=== PATIENT | female | born 1970 | race Caucasian/White ===

== ENCOUNTER 2023-11-23 18:34 | Emergency (ER) | payer OTHER, BC, SELFPAY ==
[2023-11-23 18:38] VITALS: BP 117/81; PULSE 73; RESP 16; TEMP 36.3; O2SAT 98; BMI 25.7
--- NOTE | 2023-11-23 18:58 | CRLHL7_ITS ---
For Patients: As a result of the Century Cures Act, medical imaging exams and procedure reports are released immediately into your electronic medical record. You may view this report before your referring provider. If you have questions, please contact your health care provider. INDICATION: Flank pain. Evaluate for kidney stone. TECHNIQUE: Multiplanar CT examination of the abdomen and pelvis was performed without the use of intravenous contrast, renal stone protocol. COMPARISON: None. FINDINGS: Limited evaluation of the soft tissue organs without the use of intravenous contrast. Lower chest: No focal consolidation. Normal heart size. No pleural effusions or pneumothorax. Liver: Unremarkable. Gallbladder: Cholecystectomy. Biliary: Unremarkable. Pancreas: Within normal limits. Spleen: Unremarkable. Adrenal glands: Unremarkable. Renal/ureters/bladder: Normal in size. No obstructive uropathy. No hydronephrosis or obstructive urinary calculi. Tiny nonobstructive calculi measuring 3.4 within the collecting system of the left kidney. No suspicious renal masses. The ureters appear unremarkable. The bladder is within normal limits. Pelvis: Retroverted uterus with intrauterine device in place. No adnexal masses. Gastrointestinal: No bowel wall thickening or bowel obstruction. Normal appendix. No significant colonic diverticulosis. Mild colonic stool burden. Vasculature: No aortic aneurysm. Mild atherosclerotic calcifications. Lymph nodes: No pathologic lymphadenopathy by size criteria. Peritoneum: No free fluid or pneumoperitoneum. No drainable fluid collections. Abdominal wall/soft tissues: Unremarkable. Bones: No acute osseous abnormalities. Mild degenerative changes of the thoracolumbar spine. IMPRESSION: 1. No hydronephrosis or obstructive urolithiasis. Nonobstructive tiny urinary calculus within the inferior pole of the left kidney. 2. Otherwise, no acute abdominopelvic pathology. The etiology of patient`s flank pain is not elucidated on this examination. Please note that all CT scans at this facility use dose modulation, iterative reconstruction, and/or weight-based dosing when appropriate to reduce radiation dose to as low as reasonably achievable. Dictated by Marquise Muñoz MD @ 11/23/2023 7:46:18 PM (Electronically Signed)
--- NOTE | 2023-11-23 18:59 | ED.ABDPAIN ---
HPI - Abdominal Pain General Chief Complaint: Abdominal Pain Stated Complaint: stomach pain Time Seen by Provider: 11/23/23 18:44 History of Present Illness HPI narrative: This 53-year-old female comes in reporting abdominal pain in the mid to lower abdomen that began about 3 days ago. She states that the pain comes and goes but sometimes it is very intense when it is present and other times it is completely gone. She has had some diarrhea on occasion through this time. She does not report any fevers. She does have a history of kidney stone and wonders if this may explain her symptoms. She does not report any dysuria symptoms. Related Data Home Medications ?Medication ?Instructions ?Recorded ?Confirmed atorvastatin 20 mg tablet 20 mg PO DAILY 11/23/23 11/23/23 chlorthalidone 50 mg tablet 50 mg PO DAILY 11/23/23 11/23/23 citalopram 20 mg tablet 20 mg PO DAILY 11/23/23 11/23/23 metformin 500 mg tablet,extended 1,000 mg PO BID 11/23/23 11/23/23 release 24 hr potassium chloride 20 mEq 20 meq PO BID 11/23/23 11/23/23 tablet,extended release potassium citrate 10 mEq (1,080 20 meq PO BID 11/23/23 11/23/23 mg) tablet,extended release semaglutide 14 mg tablet (Rybelsus) 14 mg PO QAM 11/23/23 11/23/23 Allergies Allergy/AdvReac Type Severity Reaction Status Date / Time erythromycin base Allergy Intermediate Abdominal Verified 11/23/23 18:37 Pain Review of Systems Status of ROS Reports: 10 or more systems reviewed and unremarkable except as noted in History and below Narrative Constitutional: No fevers, no weight gain or loss. Eyes: No discharge. No vision changes. HENT: No congestion, no sore throat, no ear pain. Cardiovascular: No chest pain, no palpitations. Respiratory: No shortness of breath, no wheezes, no cough. Gastrointestinal: No abdominal pain, no vomiting, no diarrhea. Genitourinary: No dysuria, no hematuria. Musculoskeletal: Normal range of motion. Skin: No rashes, no pruritis. Neurological: No dizziness, weakness, sensory change, speech change. Endo/Heme/Allergies: No bruising or bleeding. No polydipsia. Pysch: no suicidality, no anxiety, no insomnia. All other systems reviewed and are negative. [facility] PFS Social History Smoking Status: Never smoker Do you use any of these nicotine containing products: None How often do you have a drink containing alcohol: monthly or less AUDIT-C Alcohol total score: 1 Exam Narrative: Exam Narrative: Constitutional: Well-developed, well-nourished, no acute distress. HEENT: Normocephalic, atraumatic. Neck: Normal range of motion. Nontender. Supple. Heart: Regular. No murmurs. Normal rate. Intact distal pulses. Lungs: Clear to auscultation. No chest discomfort. No wheezes, rhonchi, or rales. Abdomen: Normal bowel sounds. Diffuse tenderness to the mid and lower abdomen. No rebound tenderness. Genitalia: Deferred. Back: No midline tenderness. Normal range of motion. Extremities: Normal range of motion. No injury. Skin: Intact. No rash. Warm. No erythema or pallor. Neurologic: No altered sensation. No weakness. Alert and oriented. Psychiatric: No suicidality. No anxiety or depression. No insomnia. Nursing notes and vitals signs are reviewed. Const: Vital Signs, click to edit/add: Vital Signs - 24 hr 11/23/23 18:38 Temperature 97.3 F L Pulse Rate [Pulse Oximeter] 73 Respiratory Rate 16 Blood Pressure [Ri ght Upper Arm] 117/81 Pulse Oximetry 98 Oxygen Delivery Me thod Room Air Course Vital Signs Vital signs: Initial Vital Signs Temperature 97.3 F L 11/23/23 18:38 Temperature Source Temporal Artery Scan 11/23/23 18:38 Pulse Rate 73 11/23/23 18:38 Pulse Rhythm Regular 11/23/23 18:38 Respiratory Rate 16 11/23/23 18:38 Blood Pressure 117/81 11/23/23 18:38 Blood Pressure Mean 93 11/23/23 18:38 Blood Pressure Position Sitting 11/23/23 18:38 Pulse Oximetry 98 11/23/23 18:38 Oxygen Delivery Method Room Air 11/23/23 18:38 Vital Signs Temperature 97.3 F L 11/23/23 18:38 Pulse Rate 73 11/23/23 18:38 Respiratory Rate 16 11/23/23 18:38 Blood Pressure 117/81 11/23/23 18:38 Pulse Oximetry 98 11/23/23 18:38 Oxygen Delivery Method Room Air 11/23/23 18:38 Temperature 97.3 F L 11/23/23 18:38 Pulse Rate 73 11/23/23 18:38 Respiratory Rate 16 11/23/23 18:38 Blood Pressure 117/81 11/23/23 18:38 Pulse Oximetry 98 11/23/23 18:38 Oxygen Delivery Method Room Air 11/23/23 18:38 Medications Administered Medications: Discontinued Medications Generic Name Dose Route Start Last Admin Trade Name Lisa PRN Reason Stop Dose Admin Acetaminophen 1,000 mg 11/23/23 19:26 11/23/23 19:28 Acetaminophen 500 Mg Tablet PO 11/23/23 19:27 1,000 mg ONCE ONE Administration Ketorolac Tromethamine 10 mg 11/23/23 20:05 11/23/23 20:11 Ketorolac 10 Mg Tablet PO 11/23/23 20:06 10 mg ONCE ONE Administration MDM - Abdominal Pain MDM Narrative Medical decision making narrative: This patient reports crampy intermittent abdominal pain and she wonders if it might be from a kidney stone. She did have a CT scan without contrast which does show a nonobstructive stone in the left kidney but no sign of ureteral calculus or obstruction. Urinalysis also returns with normal results. The patient is then wishing to have her blood checked and states that she takes potassium supplementation because she is on chlorthalidone. Her blood is obtained and complete blood count returns with normal findings. Her potassium is low at 2.6. She did receive an oral dose of potassium chloride 40 mEq here and a Zofran tablet. She also received Tylenol and Toradol orally. She does have potassium tablets that she is taking at home and will resume these current plans. She is okay to be discharged home and did received prescriptions for Toradol and Zofran from the [facility]. Lab Data Labs: Lab Results 11/23/23 11/23/23 Range/Units 19:04 20:16 WBC 8.98 (4.50-11.00) K/uL RBC 4.36 (4.00-5.20) m/uL Hgb 13.2 (12.0-16.0) gm/dL Hct 38.9 (33.0-51.0) % MCV 89 (80-100) fL MCH 30 (26-34) pg MCHC 34 (32-36) gm/dL RDW Coeff of Rell 11.8 (11.5-15.5) % Plt Count 276 (140-440) K/uL Neut % (Auto) 56.6 (42.0-72.0) % Lymph % (Auto) 32.9 (20-44) % Page % (Auto) 8.6 (0.0-11.0) % Eos % (Auto) 1.3 (0.0-7.0) % Baso % (Auto) 0.4 (0.0-3.0) % Neut # (Auto) 5.08 (1.7-7.0) K/uL Lymph # (Auto) 2.95 H (0.90-2.90) K/uL Page # (Auto) 0.80 (0.00-0.90) K/UL Eos # (Auto) 0.12 (0.00-0.50) K/uL Baso # (Auto) 0.04 (0.00-0.30) K/uL Abs Immat Gran (auto) 0.02 (0.00-0.30) K/uL Imm/Tot Granulo (auto) 0.2 % Sodium 134 L (135-149) mmol/L Potassium 2.6 L* (3.6-5.1) mmol/L Chloride 95 L (96-114) mmol/L Carbon Dioxide 29 (20-32) mmol/L Anion Gap 10 (7-15) mEq/L BUN 9 (7-30) mg/dL Creatinine 0.5 (0.5-1.5) mg/dL Estimated Creat Clear 112.36 Estimated GFR 112 ml/min Glucose 101 (60-115) mg/dL Calcium 9.3 (8.4-10.6) mg/dL Urine Color Yellow (Yellow) Urine Appearance Clear (Clear) Urine pH 6.0 (5.0-8.5) Ur Specific [place] 1.020 (1.000-1.030) Urine Protein Negative (Negative) Urine Glucose (UA) Negative (Negative) Urine Ketones Negative (Negative) Urine Blood Negative (Negative) Urine Nitrite Negative (Negative) Urine Bilirubin Negative (Negative) Urine Urobilinogen 0.2 (0.2-1.0) Ur Leukocyte Esterase Negative (Negative) Urine RBC 0-2 (0-2) Urine WBC 0-2 (0-5) Ur Squamous Epith Cells None (None-Few) Urine Bacteria None (None) Imaging Data CT scan - abdomen: Radiologist's impression: 1. No hydronephrosis or obstructive urolithiasis. Nonobstructive tiny urinary calculus within the inferior pole of the left kidney. 2. Otherwise, no acute abdominopelvic pathology. The etiology of patient`s flank pain is not elucidated on this examination. Discharge Plan Discharge Clinical Impression: Gastroenteritis, Acute hypokalemia Patient Disposition: Home, Self-Care Condition: Stable Additional Instructions: Take medication as needed and directed. Resume normal diet as tolerated. Use Imodium as needed and directed for diarrhea. Resume potassium supplementation as prescribed. Follow up with MD return if worsening. Prescriptions: No Action atorvastatin 20 mg tablet 20 mg PO DAILY chlorthalidone 50 mg tablet 50 mg PO DAILY citalopram 20 mg tablet 20 mg PO DAILY potassium citrate 10 mEq (1,080 mg) tablet extended release 20 meq PO BID metformin 500 mg tablet extended release 24 hr 1,000 mg PO BID potassium chloride 20 mEq tablet extended release 20 meq PO BID Rybelsus 14 mg tablet 14 mg PO QAM Follow Up/Referrals: Provider,Not a Local [Primary Care Provider] - Stand Alone Forms: [employer] Info Instructions
[2023-11-23 19:11] LABS: Appearance Urine Clear (Clear); Bilirubin Urine Negative (Negative); Blood Urine Negative (Negative); Color Urine Yellow (Yellow); Glucose Urine Negative (Negative); Ketones Urine Negative (Negative); Leukocyte Esterase Urine Negative (Negative); Nitrite Urine Negative (Negative); Protein Urine Negative (Negative); Urobilinogen Urine 0.2 (0.2-1.0)
[2023-11-23] MEDS: ACETAMINOPHEN 500 MG TABLET 1000 MG PO (19:28)
[2023-11-23 19:41] LABS: RBC Urine 0-2 (0-2); WBC Urine 0-2 (0-5)
[2023-11-23] MEDS: KETOROLAC 10 MG TABLET PO (20:11)
[2023-11-23 20:28] LABS: Basophils Absolute Auto 0.04 K/uL (0.00-0.30); Basophils Percent Auto 0.4 % (0.0-3.0); Eosinophils Absolute Auto 0.12 K/uL (0.00-0.50); Eosinophils Percent Auto 1.3 % (0.0-7.0); Hematocrit 38.9 % (33.0-51.0); Hemoglobin* 13.2 gm/dL (12.0-16.0); Immature Granulocytes Abs Auto 0.02 K/uL (0.00-0.30); Immature Granulocytes Pct Auto 0.2 %; Lymphocytes Absolute Auto 2.95 K/uL (0.90-2.90); Lymphocytes Percent Auto 32.9 % (20-44); Mean Corpuscular HGB Conc 34 gm/dL (32-36); Mean Corpuscular Hemoglobin 30 pg (26-34); Mean Corpuscular Volume 89 fL (80-100); Monocytes Percent Auto 8.6 % (0.0-11.0); Neutrophils Absolute Auto 5.08 K/uL (1.7-7.0); Neutrophils Percent Auto 56.6 % (42.0-72.0); Platelet Count* 276 K/uL (140-440); RDW Coefficient of Variation % 11.8 % (11.5-15.5); Red Blood Count 4.36 m/uL (4.00-5.20); White Blood Count* 8.98 K/uL (4.50-11.00)
[2023-11-23 20:40] LABS: Chloride* 95 mmol/L (96-114); Slide Review Reflex No; Sodium* 134 mmol/L (135-149)
[2023-11-23 20:43] LABS: Anion Gap 10 mEq/L (7-15); Blood Urea Nitrogen* 9 mg/dL (7-30); Carbon Dioxide* 29 mmol/L (20-32); Creatinine* 0.5 mg/dL (0.5-1.5); Est. Creatinine Clearance* 112.36; Estimated Glomerular Filt Rate 112 ml/min; Glucose* 101 mg/dL (60-115)
[2023-11-23 20:44] LABS: Calcium* 9.3 mg/dL (8.4-10.6)
[2023-11-23 20:47] LABS: Potassium* 2.6 mmol/L (3.6-5.1)
[2023-11-23] MEDS: POTASSIUM CHLORIDE 10 MEQ CAPSULE ER 40 MEQ PO (21:02)
[2023-11-23] MEDS: ONDANSETRON ODT 4 MG TAB PO (21:02)
[2023-11-23 21:23] VITALS: BP 127/76; PULSE 66; RESP 16
== END 2023-11-23 21:10 | disposition home or self-care (01) ==
PROVIDERS: Emergency Provider Emergency Medicine Emergency Medical Services
DX: K52.9 Noninfective gastroenteritis and colitis, unspecified (principal); E87.6 Hypokalemia
CPT/HCPCS: 36415; 74176; 80048; 81001; 85025; 99284; A9270